=== PATIENT | male | born 1975 | race Caucasian/White ===

== ENCOUNTER 2016-08-08 06:11 | Emergency (ER) | payer OTHER ==
[~2016-08-08] VITALS: Ht 177.8 cm; Wt 63.5 kg
[~2016-08-08 06:11] MED LIST: CLARITIN OR; FLEXERIL OR; NICO7DIS4 TD; PERC5TAB8 OR; TRAM50TA2 OR; ZYBA150T OR
[2016-08-08] MEDS ORDERED: PERCOCET 5MG/325MG TAB PO ONE (07:15)
--- NOTE | 2016-08-08 08:39 | REP ---
LEFT HIP, TWO VIEWS: There is no evidence of an acute fracture, dislocation or intrinsic bone disease. IMPRESSION: No fracture or dislocation. Signed by Shree Rao MD 08/08/2016 07:08 P
[2016-08-08] MEDS ORDERED: PERC5TAB6 PO (09:02)
[2016-08-08 09:13] VITALS: BP 144/77
== END 2016-08-08 09:20 | disposition home or self-care (01) ==
LOC: M ED 07:18
DX: S73.192A Other sprain of left hip, initial encounter (principal); X58.XXXA Exposure to other specified factors, initial encounter; Y92.018 Other place in single-family (private) house as the place of occurrence of the external cause; Y93.89 Activity, other specified; Y99.8 Other external cause status; F17.210 Nicotine dependence, cigarettes, uncomplicated

== ENCOUNTER 2016-08-13 02:50 | Emergency (ER) | payer OTHER ==
[~2016-08-13] VITALS: Ht 177.8 cm; Wt 63.5 kg
[~2016-08-13 02:50] MED LIST changes: +PERC5TAB6 PO
[2016-08-13] MEDS ORDERED: ONDANSETRON 4MG/2ML VIAL (J2405) IV ONE (03:30)
[2016-08-13] MEDS: MORPHINE 4 MG/ML 1ML SYRINGE IV PRN ×2 (03:35→04:11)
[2016-08-13 05:13] LABS: BASO % 0.2 % (0.0-1.0); EOS # 0.1 K/mm3 (0.0-0.50); LARGE UNSTAINED CELL # 0.1 K/mm3 (0.0-0.4); LARGE UNSTAINED CELL % 0.8 % (0.0-4.0); LYMPH # 2.5 K/mm3 (1.5-4.5); LYMPH % 19.1 % (24.0-44.0); MEAN CORPUSCULAR HEMOGLOBIN 31.2 pg (27.0-33.0); MEAN CORPUSCULAR HGB CONC 34.5 g/dl (32.0-36.5); MEAN CORPUSCULAR VOLUME 90.4 fl (80.0-96.0); MONO # 0.8 K/mm3 (0.0-0.8); MONO % 5.8 % (0.0-5.0); NEUTROPHILS # 9.7 K/mm3 (1.8-7.7); PLATELET COUNT, AUTOMATED 260 k/mm3 (150-450); RED CELL DISTRIBUTION WIDTH 12.8 % (11.5-14.5); WHITE BLOOD COUNT 13.3 K/mm3 (4.0-10.0)
[2016-08-13] MEDS ORDERED: KETOROLAC 30 MG/ML VIAL (J1885) IV ONE (05:30)
[2016-08-13] MEDS ORDERED: DOXYCYCLINE HYCLATE 100 MG TAB PO ONE (05:30)
[2016-08-13] MEDS ORDERED: cefTRIAXone SOD 1 GM in D5W MINI-BAG PLUS 50 ML IV ONE (05:30)
[2016-08-13] MEDS ORDERED: OXYCODONE/APAP 5MG/325MG(BULK FOR ED) 1 TABLET PO ONE (05:30)
[2016-08-13] MEDS ORDERED: HYDROmorphone HCL 1 MG/ML SYRINGE (J1170) IV ONE (05:30)
--- NOTE | 2016-08-13 05:30 | REPUSA ---
CLINICAL HISTORY: Testicular pain. Swelling. TECHNIQUE: Realtime sonographic images were obtained in multiple projections. COMMENTS: Both testicles are of normal size and shape and are of homogeneous echo texture. The right testicle m easures 4.4 x 3.1x3.3 cm. Increased vascularity of the right testicle. The right epididymis measures 7.6mm. increased vascularity of the right epididymis. The left testicle measures 4.9x2.1x2.8 cm. ther e are tiny left testicular calcifications. The left epididymis measures 6.6mm. There is a small right hydrocele. There is no evidence for testicular torsion. There is no evidence of varicocele or left hydrocele. IMPRESSION: Right epididymitis. Right orchitis. Small right hydrocele. Thank you for your kind referral of this patient.
[2016-08-13 05:32] LABS: ANION GAP 4 MEQ/L (8-16); BLOOD UREA NITROGEN 8 MG/DL (7-18); CALCIUM LEVEL 8.5 MG/DL (8.5-10.1); CARBON DIOXIDE LEVEL 31 MEQ/L (21-32); CHLORIDE LEVEL 106 MEQ/L (98-107); CREATININE FOR GFR 0.71 MG/DL (0.70-1.30); GLOMERULAR FILTRATION RATE > 60.0 (>60); GLUCOSE, FASTING 102 MG/DL (70-105); POTASSIUM SERUM 3.6 MEQ/L (3.5-5.1); SODIUM LEVEL 141 MEQ/L (136-145)
[2016-08-13] MEDS ORDERED: NAPR500T PO (05:51)
[2016-08-13] MEDS ORDERED: DOXY100C37 PO (05:52)
[2016-08-13 06:36] VITALS: BP 108/72
== END 2016-08-13 06:42 | disposition home or self-care (01) ==
LOC: M ED 04:57
DX: N45.1 Epididymitis (principal); N45.2 Orchitis; Z79.899 Other long term (current) drug therapy; J30.9 Allergic rhinitis, unspecified
CPT/HCPCS: 76870; 80048; 81001; 85025; 87040; 87086; 87491; 87591; 93976; 96374; 96375; 96376; 99282; J0696; J1170; J1885; J2405